=== PATIENT | female | born 1975 ===

== ENCOUNTER → 2020-10-09 | Emergency (ER) | payer OTHER ==
[~2020-10-09] VITALS: Ht 162.6 cm; Wt 93.4 kg
[~2020-10-09] MED LIST: KETO10TA2 PO; SYNTHROID112 MCG
== END | disposition home or self-care (01) ==
LOC: ER 20:51
DX: K57.90 Diverticulosis of intestine, part unspecified, without perforation or abscess without bleeding (principal); K76.0 Fatty (change of) liver, not elsewhere classified; R10.32 Left lower quadrant pain

== ENCOUNTER 2022-11-19 09:44 | Outpatient (CLI) | payer OTHER | END 2022-11-19 09:52 | disposition home or self-care (01) | LOC: SONOGRAMA 09:44 | PROVIDERS: ATTEND Pathology Anatomic Pathology & Clinical Pathology | DX: D34 Benign neoplasm of thyroid gland (principal); E06.3 Autoimmune thyroiditis ==